=== PATIENT | male | born 1960 | race Caucasian/White ===

== ENCOUNTER 2023-01-20 08:46 | Outpatient (CLI) | payer OTHER, SELFPAY | END 2023-01-20 08:47 | disposition home or self-care (01) | PROVIDERS: PCP Family Medicine; Visit Provider Family Medicine | DX: I10 Essential (primary) hypertension (principal); E78.5 Hyperlipidemia, unspecified; Z13.0 Encounter for screening for diseases of the blood and blood-forming organs and certain disorders involving the immune mechanism; Z12.5 Encounter for screening for malignant neoplasm of prostate | CPT/HCPCS: 80048; 80061; 84153 ==

== ENCOUNTER 2025-01-22 15:35 | Outpatient (CLI) | payer OTHER, SELFPAY | END 2025-01-22 15:36 | disposition home or self-care (01) | PROVIDERS: PCP Family Medicine; Visit Provider Family Medicine | DX: E78.00 Pure hypercholesterolemia, unspecified (principal); I10 Essential (primary) hypertension; Z12.5 Encounter for screening for malignant neoplasm of prostate | CPT/HCPCS: 80048; 80061; G0103 ==